=== PATIENT | male | born 1960 | race Caucasian/White ===

== ENCOUNTER 2024-02-12 21:47 | Emergency (ER) | payer SELFPAY ==
[2024-02-12 22:00] VITALS: RESP 18
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
[2024-02-12] MEDS: LORazepam 1 MG TAB PO STA (23:11)
[2024-02-12] MEDS: ONDANSETRON 4 MG TAB PO STA (23:13)
[2024-02-12] MEDS: TOPICAL SKIN ADHESIVE 1 EACH AMP TOPICAL ONE (23:15)
[2024-02-12] MEDS: NICOTINE 7MG/24HR PATCH TRANSDERM STA (23:43)
[2024-02-13] MEDS: LORazepam 1 MG TAB PO STA (02:47)
[2024-02-13] MEDS: HALOPERIDOL LACTATE 5 MG/ML 1 ML VIAL IM STA (02:48)
[2024-02-13] MEDS: LORazepam 2 MG/ML INJ IM STA (02:48)
[2024-02-13 09:11] VITALS: BP 119/70; PULSE 97; TEMP 98.3
== END 2024-02-13 09:10 | disposition home or self-care (01) ==
LOC: EC 21:47
CPT/HCPCS: 12011; 70450; 99283

== ENCOUNTER 2024-04-10 01:51 | Inpatient (IN) | payer OTHER ==
[2024-04-10] MEDS ORDERED: RX INFO: IV CONTRAST WAS GIVEN 1 EACH MISC MISCELLANE PRN (01:58)
[2024-04-10] MEDS: PROPOFOL 10 MG/ML 20 ML VIAL IV ONE (02:03)
[2024-04-10] MEDS: HYDROmorphone 0.5 MG/0.5 ML SYRINGE IVP STA (02:03)
[2024-04-10 02:10] LABS: Basophils # (A) 0.1 k/uL (0-0.2); Basophils % (A) 1 %; Eosinophils # (A) 0.2 k/uL (0-0.7); Eosinophils % (A) 2 %; HCT 46.5 % (39.0-53.0); HGB 15.8 gm/dL (13.0-17.5); Lymphocytes # (A) 3.6 k/uL (1.0-4.8); Lymphocytes % (A) 31 %; MCH 34.2 pg (25.0-35.0); MCHC 34.1 g/dL (31.0-37.0); MCV 100.3 fL (80.0-100.0); Mean Platelet Volume 8.1; Monocytes # (A) 0.7 k/uL (0-1.0); Monocytes % (A) 6 %; Neutrophils # (A) 6.8 k/uL (1.3-7.7); Neutrophils % (A) 58 %; Platelet Count 294 k/uL (150-450); RBC 4.64 m/uL (4.30-5.90); RDW 12.4 % (11.5-15.5); WBC 11.6 k/uL (3.8-10.6)
--- NOTE | 2024-04-10 02:11 | XR ---
EXAM: XR Chest, 1 View CLINICAL HISTORY: ITS.REASON XR Reason: trauma TECHNIQUE: Frontal view of the chest. COMPARISON: No relevant prior studies available. FINDINGS: Lungs: Emphysema. No consolidation. Pleural space: Small left apical pneumothorax measuring 3 cm at the apex. No tension. No pleural effusion. Heart: Unremarkable. No cardiomegaly or pulmonary vascular congestion. Bones/joints: No acute osseous findings as visualized. IMPRESSION: Small left apical pneumothorax measuring 3 cm at the apex. No tension. <MYCVCSECTION> Communications: 04/10/24 02:27 Call Doctor Regarding Pneumothorax, called Verified report received by ANDREW Diaz on 04/10 02:27 (-04:00)
[2024-04-10 02:26] LABS: ALT 33 U/L (4-49); AST 38 U/L (17-59); African American GFR (CKD) >90 (>60 ml/min/1.73 sqM); Albumin 4.2 g/dL (3.5-5.0); Alkaline Phosphatase 82 U/L (38-126); Anion Gap 17 mmol/L; Blood Urea Nitrogen 9 mg/dL (9-20); Calcium 9.6 mg/dL (8.4-10.2); Carbon Dioxide 14 mmol/L (22-30); Chloride 110 mmol/L (98-107); Glucose 90 mg/dL (74-99); Non-African American GFR(CKD) >90 (>60 ml/min/1.73 sqM); Potassium 3.5 mmol/L (3.5-5.1); Sodium 141 mmol/L (137-145); Total Bilirubin 0.9 mg/dL (0.2-1.3); Total Protein 6.9 g/dL (6.3-8.2)
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
[2024-04-10 02:43] LABS: Alcohol 251 mg/dL
[2024-04-10] MEDS ORDERED: CALCIUM CARBONATE 500 MG CHEWABLE PO PRN (02:54)
[2024-04-10] MEDS ORDERED: HYDROmorphone 1 MG/ML 1 ML SYRINGE IVP PRN (02:54)
[2024-04-10] MEDS ORDERED: HYDROmorphone 0.5 MG/0.5 ML SYRINGE IVP PRN (02:54)
[2024-04-10] MEDS ORDERED: NALOXONE 0.4 MG/ML 1 ML VIAL IV PRN (02:54)
[2024-04-10] MEDS ORDERED: MAG HYDROX/AL HYDROX/SIMETH 30 ML CUP PO PRN (02:54)
--- NOTE | 2024-04-10 03:08 | XR ---
EXAM: XR Pelvis, 1 or 2 Views CLINICAL HISTORY: Trauma TECHNIQUE: Frontal view of the pelvis. COMPARISON: No relevant prior studies available. FINDINGS: Bones/joints: Unremarkable. No acute fracture. No dislocation. Soft tissues: Contrast is seen in the ureters. IMPRESSION: No acute findings.
[2024-04-10 03:10] LABS: Partial Thromboplastin Time 23.5 sec (22.0-30.0); Prothrombin Time 10.7 sec (10.0-12.5)
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
[2024-04-10] MEDS: SODIUM CHLORIDE 0.9% 2,000 ML IV ONE (04:10)
[2024-04-10] MEDS: LORazepam 2 MG/ML INJ IV STA (04:10)
[2024-04-10] MEDS: DIPH,PERTUS(ACELL)TETVAC-LF 0.5 ML VIAL IM ONE (04:11)
[2024-04-10] MEDS: DEXTROSE 5%-0.45% NACL 1,000 ML IV SCH (04:17)
[2024-04-10 05:09] LABS: Amphetamine Screen,Urine Not Detected (NotDetected); Barbiturate Screen,Urine Not Detected (NotDetected); Benzodiazepines Screen,Urine Not Detected (NotDetected); Cocaine Screen,Urine Not Detected (NotDetected); Methadone Screen, Urine Not Detected (NotDetected); Opiate Screen,Urine Detected (NotDetected); Oxycodone Screen, Urine Not Detected (NotDetected); Phencyclidine Screen,Urine Not Detected (NotDetected); Tricyclic Antidepressant,Urine Not Detected (NotDetected); Urn Cannabinoid Scrn Detected (NotDetected)
[2024-04-10] MEDS ORDERED: LORazepam 0.5 MG TAB PO PRN (07:31)
[2024-04-10] MEDS ORDERED: LORazepam 2 MG/ML INJ IV PRN ×3 (07:31)
[2024-04-10] MEDS ORDERED: LORazepam 1 MG TAB PO PRN (07:31)
[2024-04-10] MEDS: HYDROmorphone 2 MG/ML 1 ML SYRINGE IVP PRN (07:45)
--- NOTE | 2024-04-10 09:54 | XR ---
EXAMINATION TYPE: XR chest 1V portable DATE OF EXAM: 04/10/2024 9:45 AM CLINICAL INDICATION: Male, 63 years old with history of Post chest tube insertion; [facility] COMPARISON: Chest radiographs from same day. TECHNIQUE: XR chest 1V portable Frontal view of the chest. FINDINGS: Lungs/Pleura: There is no evidence of pleural effusion, focal consolidation, or pneumothorax. Pulmonary vascularity: Unremarkable. Heart/mediastinum: Cardiomediastinal silhouette is unremarkable. Musculoskeletal: No acute osseous pathology. Other findings: None Lines/Tubes: Interval placement of left lower extremity with small apical pneumothorax.a IMPRESSION: Left thoracotomy tube with small apical left pneumothorax. [facility], , 04/10/2024 9:52 AM
[2024-04-10] MEDS: FAMOTIDINE 20 MG TAB PO SCH (10:01)
[2024-04-10] MEDS: MULTIVITAMINS, THERA 1 EACH TAB PO SCH (10:01)
[2024-04-10] MEDS: FOLIC ACID 1 MG TAB PO SCH (10:01)
[2024-04-10] MEDS: ACETAMINOPHEN TAB 325 MG TAB PO PRN (10:01)
[2024-04-10] MEDS: NICOTINE 14MG/24HR PATCH TRANSDERM SCH (10:48)
[2024-04-10] MEDS: SODIUM CHLORIDE 0.9% 1,000 ML IV SCH (10:49)
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
[2024-04-10] MEDS: HYDROcodone/APAP 5-325MG 1 EACH TAB PO PRN (19:45)
[2024-04-11 07:46] LABS: HCT 41.3 % (39.0-53.0); MCH 33.9 pg (25.0-35.0); MCHC 33.8 g/dL (31.0-37.0); MCV 100.3 fL (80.0-100.0); Mean Platelet Volume 8.1; Platelet Count 247 k/uL (150-450); RBC 4.12 m/uL (4.30-5.90); RDW 12.3 % (11.5-15.5); WBC 9.1 k/uL (3.8-10.6)
--- NOTE | 2024-04-11 07:55 | XR ---
EXAMINATION TYPE: XR chest 1V portable DATE OF EXAM: 04/11/2024 Comparison: 04/10/2024 Clinical History: 63-year-old male Left pneumothorax Findings: Left-sided chest tube in place. Subcutaneous emphysema slightly increased along the left chest wall. Small left apical pneumothorax 0.2 cm versus 2.1 cm, previously, not significantly changed. Backgroun d hyperinflation. Possible trace left effusion. Heart normal size. Impression: COPD with left-sided chest tube in place and similar small 2.2 cm left apical pneumothorax. [facility], , 04/11/2024 7:53 AM
[2024-04-11 08:05] LABS: ALT 23 U/L (4-49); AST 27 U/L (17-59); African American GFR (CKD) >90 (>60 ml/min/1.73 sqM); Albumin 3.2 g/dL (3.5-5.0); Alkaline Phosphatase 69 U/L (38-126); Anion Gap 3 mmol/L; Blood Urea Nitrogen 5 mg/dL (9-20); Calcium 8.5 mg/dL (8.4-10.2); Carbon Dioxide 26 mmol/L (22-30); Chloride 108 mmol/L (98-107); Glucose 94 mg/dL (74-99); Magnesium 1.6 mg/dL (1.6-2.3); Non-African American GFR(CKD) >90 (>60 ml/min/1.73 sqM); Potassium 4.1 mmol/L (3.5-5.1); Sodium 137 mmol/L (137-145); Total Bilirubin 2.2 mg/dL (0.2-1.3); Total Protein 5.7 g/dL (6.3-8.2)
[2024-04-11] MEDS: THIAMINE 100 MG TAB PO SCH (08:43)
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
[2024-04-11] MEDS: MAGNESIUM SULFATE-D5W PMX 1 GM in DEXTROSE/WATER 1 100ML.BAG IVPB SCH (16:16)
--- NOTE | 2024-04-12 08:23 | XR ---
EXAMINATION TYPE: XR chest 1V portable DATE OF EXAM: 04/12/2024 7:01 AM COMPARISON: Chest radiograph from one day prior. CLINICAL INDICATION: Male, 63 years old with history of Left pneumothorax; [facility] TECHNIQUE: XR chest 1V portable Frontal view of the chest. FINDINGS: Lungs/Pleura: Trace left pleural There is no evidence of pleural effusion, focal consolidation, or ri ght pneumothorax. Pulmonary vascularity: Unremarkable. Heart/mediastinum: Cardiomediastinal silhouette is unremarkable. Musculoskeletal: No acute osseous pathology. Other findings: None IMPRESSION: Stable, Left thoracotomy tube with small left pneumothorax. [facility], , 04/12/2024 8:21 AM
[2024-04-12 08:46] LABS: HGB 15.3 gm/dL (13.0-17.5); MCH 34.2 pg (25.0-35.0); MCHC 34.1 g/dL (31.0-37.0); MCV 100.5 fL (80.0-100.0); Mean Platelet Volume 8.3; Platelet Count 274 k/uL (150-450); RBC 4.47 m/uL (4.30-5.90); RDW 12.3 % (11.5-15.5); WBC 7.8 k/uL (3.8-10.6)
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
[2024-04-12 08:58] LABS: ALT 21 U/L (4-49); AST 25 U/L (17-59); African American GFR (CKD) >90 (>60 ml/min/1.73 sqM); Albumin 3.7 g/dL (3.5-5.0); Alkaline Phosphatase 64 U/L (38-126); Anion Gap 5 mmol/L; Blood Urea Nitrogen 5 mg/dL (9-20); Calcium 8.8 mg/dL (8.4-10.2); Carbon Dioxide 27 mmol/L (22-30); Chloride 107 mmol/L (98-107); Glucose 109 mg/dL (74-99); Magnesium 1.8 mg/dL (1.6-2.3); Non-African American GFR(CKD) >90 (>60 ml/min/1.73 sqM); Potassium 3.8 mmol/L (3.5-5.1); Sodium 139 mmol/L (137-145); Total Bilirubin 1.8 mg/dL (0.2-1.3); Total Protein 6.3 g/dL (6.3-8.2)
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
[2024-04-12 14:07] VITALS: BMI 18.8
--- NOTE | 2024-04-13 06:47 | XR ---
EXAMINATION TYPE: XR chest 2V DATE OF EXAM: 04/13/2024 6:36 AM COMPARISON: Chest radiograph from one day prior. CLINICAL INDICATION: Male, 63 years old with history of Post chest tube removal; [facility] TECHNIQUE: XR chest 2V Frontal and lateral views of the chest. FINDINGS: Lungs/Pleura: There remains a small apical pneumothorax. There is no evidence of pleural effusion, fo nara consolidation, or right pneumothorax. Pulmonary vascularity: Unremarkable. Heart/mediastinum: Cardiomediastinal silhouette is unremarkable. Musculoskeletal: No acute osseous pathology. IMPRESSION: Removal left thoracotomy tube with small left apical pneumothorax. [facility], , 04/13/2024 6:44 AM
[2024-04-13 07:41] LABS: HCT 42.5 % (39.0-53.0); HGB 14.4 gm/dL (13.0-17.5); MCH 33.7 pg (25.0-35.0); MCHC 33.8 g/dL (31.0-37.0); MCV 99.7 fL (80.0-100.0); Mean Platelet Volume 8.3; Platelet Count 278 k/uL (150-450); RBC 4.26 m/uL (4.30-5.90); RDW 12.3 % (11.5-15.5); WBC 9.3 k/uL (3.8-10.6)
[2024-04-13 07:56] LABS: ALT 20 U/L (4-49); AST 25 U/L (17-59); African American GFR (CKD) >90 (>60 ml/min/1.73 sqM); Albumin 3.4 g/dL (3.5-5.0); Alkaline Phosphatase 68 U/L (38-126); Anion Gap 4 mmol/L; Blood Urea Nitrogen 7 mg/dL (9-20); Carbon Dioxide 25 mmol/L (22-30); Chloride 107 mmol/L (98-107); Glucose 82 mg/dL (74-99); Magnesium 1.6 mg/dL (1.6-2.3); Non-African American GFR(CKD) >90 (>60 ml/min/1.73 sqM); Sodium 136 mmol/L (137-145); Total Bilirubin 1.5 mg/dL (0.2-1.3); Total Protein 5.9 g/dL (6.3-8.2)
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
[2024-04-13] MEDS: MAGNESIUM SULFATE-D5W PMX 1 GM in DEXTROSE/WATER 1 100ML.BAG IVPB SCH (10:08)
[2024-04-13 11:18] VITALS: RESP 20; TEMP 97.6
[2024-04-13] MEDS: MAGNESIUM OXIDE 400 MG TAB PO STA (11:29)
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
[2024-04-13 16:02] VITALS: BP 137/81; PULSE 112
== END 2024-04-13 17:04 | disposition home or self-care (01) | DRG 200 ==
LOC: EC 01:51 → 5NMEDONC 02:54 → 3SCARD 04:52
PROVIDERS: ADMIT Surgery; ATTEND Surgery
PROC: 0W9B30Z Drainage of Left Pleural Cavity with Drainage Device, Percutaneous Approach (ICD-10-PCS; principal; 2024-04-10)
PROC: 3E0234Z Introduction of Serum, Toxoid and Vaccine into Muscle, Percutaneous Approach (ICD-10-PCS; 2024-04-10)
DX: S27.0XXA Traumatic pneumothorax, initial encounter (principal); E87.20 Acidosis, unspecified; S21.112A Laceration without foreign body of left front wall of thorax without penetration into thoracic cavity, initial encounter; F10.129 Alcohol abuse with intoxication, unspecified; F12.10 Cannabis abuse, uncomplicated; F17.210 Nicotine dependence, cigarettes, uncomplicated; D75.89 Other specified diseases of blood and blood-forming organs; E83.42 Hypomagnesemia; E80.6 Other disorders of bilirubin metabolism; Z23 Encounter for immunization; Y90.8 Blood alcohol level of 240 mg/100 ml or more; Y07.040 Female partner, current, perpetrator of maltreatment and neglect; X99.9XXA Assault by unspecified sharp object, initial encounter; Z79.82 Long term (current) use of aspirin
CPT/HCPCS: 32551; 36415; 71045; 71046; 71260; 72170; 80053; 80306; 80320; 83605; 83735; 84484; 85025; 85027; 85610; 85730; 86850; 86900; 86901; 90471; 90715; 93005; 96361; 96365; 96375; 96376; 99152; 99291